=== PATIENT | male | born 1970 | race Caucasian/White ===

== ENCOUNTER → 2016-06-02 | Outpatient (CLI) | payer OTHER ==
--- NOTE | 2016-06-02 11:21 | REP ---
PA and lateral chest: Comparisons are the PA and lateral chest studies dated 06/25/2068, 07/09/[address] dated 11/07/2015. 06/26/2015 there was an infiltrate inferiorly in the left lung that have significantly improved. The 07/09/2015 plain film study and 11/07/2015 CT study. On the study today the lung escobedo are clear. The previous lung densities have resolved. However, there is a 7 mm faintly visible nodule inferiorly in the left lung superimposed over the anterior end of the left sixth rib definitely present previously. Cardiac size is normal. The brenda, mediastinum, and bony thorax are unremarkable. Impression: There is a new faintly visible 7 mm nodule inferiorly on the left as described. Upon review of the comparison CT, no rib abnormality is identified. No lung nodule is identified. Therefore, this may represent a new lung nodule. Follow-up CT might be considered for further evaluation. The previous lung parenchymal densities have all resolved. Cardiac size is normal. Study otherwise unremarkable. Signed by Shiv Zamarripa MD 06/02/2016 11:12 A
== END ==
LOC: M SMT 09:43
PROVIDERS: ATTEND Internal Medicine Pulmonary Disease
DX: R91.8 Other nonspecific abnormal finding of lung field (principal)

== ENCOUNTER → 2017-06-13 | Day surgery (SDC) | payer OTHER ==
[~2017-06-13] MED LIST: AMPICILLIN SOD/SULBACTAM SOD 3 GM in D5W MINI-BAG PLUS 100 ML IV; ASPIRIN 81 MG CHEW TABLET PO; LR 1,000 ML IV; dexameTHASONE 4 MG/ML 1ML VIAL (J1100) IV
== END | disposition home or self-care (01) ==
LOC: M SDC 09:02
DX: K02.9 Dental caries, unspecified (principal); Z53.09 Procedure and treatment not carried out because of other contraindication